=== PATIENT | male | born 1960 | race African-American/Black ===

== ENCOUNTER 2021-03-15 01:05 | Emergency (ER) | payer OTHER ==
[2021-03-15 02:06] LABS: BASOPHIL 0.8 % (0-2); EOSINOPHIL 1.8 % (0-5); HCT 34.4 % (42.0-52.0); HGB 11.3 g/dl (13.2-18.0); LYMPHOCYTE 21.2 % (15-48); MCH 29.4 pg (25.0-31.0); MCHC 32.8 g/dL (32.0-36.0); MCV 89.6 fL (78.0-100.0); MONOCYTE 7.5 % (0-12); MPV 9.5 fL (6.0-9.5); NEUTROPHIL 68.4 % (41-80); NRBC 0; PLT 200 K/uL (150-400); RBC 3.84 M/uL (4.70-6.00); RDW 14.6 % (11.5-14.0); WBC 11.9 K/uL (4.0-10.5)
[2021-03-15 02:32] LABS: BUN/CREAT RATIO (CALC) 5.5 RATIO; CREATININE 8.98 mg/dL (0.67-1.17); POTASSIUM 3.7 mmol/L (3.5-5.1)
[2021-03-15 02:59] LABS: CORONAVIRUS 2019 SARS-COV-2 NEGATIVE (NEGATIVE); INFLUENZA A NAA NEGATIVE (NEGATIVE)
== END 2021-03-15 08:11 | disposition other institution (70) ==
LOC: FER 01:05
PROVIDERS: Internal Medicine
DX: J81.1 Chronic pulmonary edema (principal); J96.01 Acute respiratory failure with hypoxia; I12.0 Hypertensive chronic kidney disease with stage 5 chronic kidney disease or end stage renal disease; E11.22 Type 2 diabetes mellitus with diabetic chronic kidney disease; N18.6 End stage renal disease; F17.210 Nicotine dependence, cigarettes, uncomplicated; Z20.822 Contact with and (suspected) exposure to COVID-19; Z99.2 Dependence on renal dialysis
CPT/HCPCS: 36415; 71045; 80048; 83880; 84145; 85025; 93005; 94640; 94664; J2543; J3490; U0002